=== PATIENT | male | born 1940 | race Caucasian/White ===

== ENCOUNTER 2016-12-14 23:50 | Emergency (ER) | payer BC ==
[2016-12-14 20:31] LABS: BASOPHILS 0.1 %; BASOPHILS ABSOLUTE 0.01 10/3/uL (0.0-0.16); EOSINOPHILS 0.4 %; EOSINOPHILS ABSOLUTE 0.03 10/3/uL (0.0-0.53); ER CBC TAT 0 Hrs 09 Mins; HEMATOCRIT 42.6 % (40.0-51.0); HEMOGLOBIN 15.2 g/dL (13.6-17.8); LYMPHOCYTES 18.7 %; LYMPHOCYTES ABSOLUTE 1.26 10/3/uL (0.67-4.30); MANUAL DIFF NO %; MEAN CORPUS HGB CONC 35.7 g/dL (32.0-36.0); MEAN CORPUSCULAR HEMOGLOB 30.3 pg (26.0-34.0); MEAN CORPUSCULAR VOLUME 84.9 fL (80-100); MEAN PLATELET VOLUME 8.7 fL (9.2-13.0); MONOCYTES 5.8 %; MONOCYTES ABSOLUTE 0.39 10/3/uL (0.21-1.20); NEUTROPHILS ABSOLUTE 5.04 10/3/uL (2.02-8.40); PLATELET COUNT 198 10/3/uL (150-400); RBC DISTRIBUTION WIDTH 12.7 % (12.0-16.0); RED CELL COUNT 5.02 10/6/uL (4.7-6.1); WHITE BLOOD CELLS 6.7 10/3/uL (4.5-10.5)
[2016-12-14 20:46] LABS: CALCIUM, SERUM 8.8 MG/DL (8.5-10.4); CHLORIDE, SERUM 106 MMOL/L (96-112); CO2 (CARBON DIOXIDE) 25 MMOL/L (24-34); CREATININE 1.16 MG/DL (0.70-1.30); GFR AFRICAN AMERICAN 70 ML/MIN (>=60); GFR NON AFRICAN AMERICAN 60 ML/MIN (>=60); POTASSIUM, SERUM 4.5 MMOL/L (3.5-5.3); SODIUM, SERUM 137 MMOL/L (135-148)
[2016-12-14 20:47] LABS: BUN (BLOOD UREA NITROGEN) 20 MG/DL (6-23); GLUCOSE, SERUM 112 MG/DL (60-99)
[2016-12-14 20:57] LABS: ASCORBIC ACID (UR NOT ORDER) NEG (NEG); BILIRUBIN, URINE NEGATIVE (NEG); KETONE, URINE 20 MG/DL (NEG); LEUKOCYTE ESTERASE(NOT OR NEG (NEG); NITRITE (URINE) NEG (NEG); WBC (NOT ORDERED) (RFLEX) 3 (0-5)
[2016-12-14 20:58] LABS: ER URINALYSIS TAT 0 Hrs 35 Mins
[~2016-12-14 23:50] MED LIST: ADVIL PO; ALLEGRA180 PO; ASAB PO; BEN25 PO; CARDU2 PO; CINNAMON OR; COREG3 PO; DSS PO; FISH OIL1200 MG PO; LOTRISONE EX; METPAKSF PO; NITROSTAT0.4 MG SL; PRAVACHOL40 MG PO; PRILO PO; VITAMIN B COMPLEX PO; [UNRECOGNIZED DRUG - OTHER] PO
[2016-12-23] MEDS ORDERED: ZOFRAN4 PO (12:09)
[2016-12-23] MEDS ORDERED: ENDOCET1 TAB PO (12:09)
[2016-12-23] MEDS ORDERED: LIOR10 PO (12:10)
[2016-12-23] MEDS ORDERED: PROAIR HFA INH (12:19)
== END 2016-12-15 00:56 | disposition home or self-care (01) ==
LOC: ER 23:50
PROVIDERS: Hospitalist
DX: R10.32 Left lower quadrant pain (principal); I25.10 Atherosclerotic heart disease of native coronary artery without angina pectoris; I95.9 Hypotension, unspecified; I51.9 Heart disease, unspecified; I77.89 Other specified disorders of arteries and arterioles; R53.1 Weakness; R42 Dizziness and giddiness; Z87.442 Personal history of urinary calculi; Z88.2 Allergy status to sulfonamides; Z87.891 Personal history of nicotine dependence; Z79.82 Long term (current) use of aspirin; Z79.899 Other long term (current) drug therapy
CPT/HCPCS: 74000; 80048; 81001; 85025; 93306; 93880; 96374; 99284; J2405

== ENCOUNTER 2016-12-27 07:35 | Day surgery (SDC) | payer BC ==
[2016-12-23 16:20] LABS: PFA (COL/EPI) 63 SEC (72-180)
[2016-12-23 17:25] LABS: HEMATOCRIT 38.8 % (40.0-51.0); HEMOGLOBIN 13.4 g/dL (13.6-17.8)
[2016-12-23 17:33] LABS: BUN (BLOOD UREA NITROGEN) 19 MG/DL (6-23); CHLORIDE, SERUM 102 MMOL/L (96-112); CO2 (CARBON DIOXIDE) 27 MMOL/L (24-34); CREATININE 1.32 MG/DL (0.70-1.30); GFR AFRICAN AMERICAN 60 ML/MIN (>=60); GFR NON AFRICAN AMERICAN 52 ML/MIN (>=60); GLUCOSE, SERUM 122 MG/DL (60-99); POTASSIUM, SERUM 3.9 MMOL/L (3.5-5.3); SODIUM, SERUM 135 MMOL/L (135-148)
[2016-12-23 18:01] LABS: ASCORBIC ACID (UR NOT ORDER) NEG (NEG); BILIRUBIN, URINE NEGATIVE (NEG); KETONE, URINE NEGATIVE (NEG); LEUKOCYTE ESTERASE(NOT OR TRACE (NEG); WBC (NOT ORDERED) (RFLEX) 9 (0-5)
--- NOTE | ~2016-12-27 | OP ---
Record Of Operation [facility] [address] [place]. [address] NAME: WILEY BERGER : 38 STATUS : REG [facility]#: [id number] AGE: 76 ADM/REG DATE : 12/27/16 MR#: [id number] REPORT SERV DATE: 12/27/16 DICTATED BY: ELPIDIO BRANNON DATE: 12/27/16 REPORT STATUS : Draft TRANSCRIBED BY: MODL DATE: 12/27/16 DATE OF PROCEDURE: 12/27/2016 PREOPERATIVE DIAGNOSIS: Calculus, left ureter. POSTOPERATIVE DIAGNOSIS: Calculus, left ureter. OPERATIVE PROCEDURE: Left extracorporeal shock wave lithotripsy. ANESTHESIA: Monitored anesthesia care (MAC). COMPLICATIONS: None. DRAINS: None. ESTIMATED BLOOD LOSS: None. IMMEDIATE POSTOP: Satisfactory. DESCRIPTION OF PROCEDURE: The patient was brought into the lithotripsy suite and placed on the table of the [employer]ier Compact Delta II lithotripter. Stone was identified and aligned on mobile C-arm fluoroscopy for lithotripsy. The patient was then coupled to the machine and then given IV sedation by the Anesthesia Department (MAC). The stone was then treated with 2500 shocks at 4.0 power level max. There were no complications. The patient tolerated the procedure well and at the close of procedure, was awakened, removed from the mobile lithotripter and lithotripsy suite, and returned to phase 2 recovery for post lithotripsy care. There were no complications. /KVNG Elpidio Brannon M.D. / [id number] CC: Nohemi Mason M.D.
[~2016-12-27 07:35] MED LIST changes: +ENDOCET1 TAB PO; +LIOR10 PO; +PROAIR HFA INH; +ZOFRAN4 PO
[2016-12-27 08:57] LABS: PFA (COL/EPI) 94 SEC (72-180)
== END 2016-12-27 18:35 | disposition home or self-care (01) ==
LOC: SDC 07:35
PROVIDERS: Urology
PROC: 0TF78ZZ Fragmentation in Left Ureter, Via Natural or Artificial Opening Endoscopic (ICD-10-PCS; principal; 2016-12-27 10:00)
DX: N20.1 Calculus of ureter (principal); J44.9 Chronic obstructive pulmonary disease, unspecified; K21.9 Gastro-esophageal reflux disease without esophagitis; Z88.2 Allergy status to sulfonamides; Z79.891 Long term (current) use of opiate analgesic; Z79.82 Long term (current) use of aspirin; Z79.899 Other long term (current) drug therapy; Z98.41 Cataract extraction status, right eye; Z98.42 Cataract extraction status, left eye; Z90.49 Acquired absence of other specified parts of digestive tract; Z98.890 Other specified postprocedural states
CPT/HCPCS: 50590; 74000; 80048; 81001; 85014; 85018; 85576; 93005; A9270-GY; J3010